=== PATIENT | male | born 1995 | race Caucasian/White ===

== ENCOUNTER 2024-05-17 11:38 | Emergency (ER) | payer MEDICAID ==
[~2024-05-17] VITALS: Ht 170.2 cm; Wt 131.0 kg
[2024-05-17 11:52] VITALS: BP 132/80; PULSE 106; RESP 16; TEMP 98.4; O2SAT 96
[2024-05-17 15:50] LABS: BASOPHILS % 0.4 % (0.0-2.0); EOSINOPHILS % 0.6 % (0.0-5.0); HEMOGLOBIN. 13.4 g/dL (14.0-18.0); LYMPHOCYTES % 13.5 % (20.0-50.0); MEAN CORPUSCULAR HGB CONC 34.2 g/dL (31.0-37.0); MEAN CORPUSCULAR VOLUME 96.4 fL (80.0-94.0); MEAN PLATELET VOLUME 8.1 fl (7.4-10.4); NEUTROPHILS % 79.5 % (40.0-76.0); PLATELET 188 x1000/uL (130-400); RED BLOOD CELL COUNT 4.05 mill/uL (4.7-6.1); RED CELL DISTRIBUTION WIDTH 14.9 % (11.6-14.6); WHITE BLOOD COUNT 8.7 x1000/uL (4.5-11.0)
[2024-05-17 15:56] LABS: CHLORIDE 103 mEq/L (98-107); POTASSIUM 3.6 mEq/L (3.5-5.1); SODIUM 136 mEq/L (136-145)
[2024-05-17 15:57] LABS: CARBON DIOXIDE 27 mEq/L (21-32)
[2024-05-17 15:58] LABS: CALCIUM 9.3 mg/dL (8.7-10.4)
[2024-05-17 16:02] LABS: CREATININE 0.8 mg/dL (0.6-1.3); GLUCOSE 105 mg/dL (70-105)
[2024-05-17 16:03] LABS: UREA NITROGEN BLOOD 13 mg/dL (9-23)
[2024-05-17] MEDS ORDERED: IBUP-2030 MT (17:36)
[2024-05-17] MEDS ORDERED: SULF1TAB48 MT (17:36)
== END 2024-05-17 17:30 ==
LOC: ER 11:38
DX: L03.115 Cellulitis of right lower limb (principal)
CPT/HCPCS: 36415; 80048; 85025; 93971; 99284

== ENCOUNTER 2024-09-27 14:41 | Emergency (ER) | payer MEDICAID ==
[~2024-09-27] VITALS: Ht 171.4 cm; Wt 172.4 kg
[~2024-09-27 14:41] MED LIST: IBUP-2030 MT; SULF1TAB48 MT
[2024-09-27 14:47] VITALS: O2SAT 93
[2024-09-27] MEDS: CEFTRIAXONE SODIUM 1G VIAL IM ONE (16:26)
[2024-09-27 16:43] LABS: CARBON DIOXIDE 29 mEq/L (21-32); CHLORIDE 103 mEq/L (98-107); POTASSIUM 3.3 mEq/L (3.5-5.1); SODIUM 141 mEq/L (136-145)
[2024-09-27 16:44] LABS: CALCIUM 9.3 mg/dL (8.7-10.4)
[2024-09-27 16:46] LABS: BASOPHILS % 0.5 % (0.0-2.0); EOSINOPHILS % 3.9 % (0.0-5.0); HEMATOCRIT. 40.3 % (42.0-52.0); HEMOGLOBIN. 13.3 g/dL (14.0-18.0); LYMPHOCYTES % 26.2 % (20.0-50.0); MEAN CORPUSCULAR HEMOGLOBIN 31.5 pg (28.0-32.0); MEAN CORPUSCULAR HGB CONC 32.9 g/dL (31.0-37.0); MEAN CORPUSCULAR VOLUME 95.8 fL (80.0-94.0); MEAN PLATELET VOLUME 9.1 fl (7.4-10.4); MONOCYTES % 7.4 % (2.0-8.0); PLATELET 225 x1000/uL (130-400); RED BLOOD CELL COUNT 4.21 mill/uL (4.7-6.1); RED CELL DISTRIBUTION WIDTH 14.9 % (11.6-14.6); WHITE BLOOD COUNT 5.9 x1000/uL (4.5-11.0)
[2024-09-27 16:48] LABS: CREATININE 0.7 mg/dL (0.6-1.3)
[2024-09-27 16:49] LABS: GLUCOSE 85 mg/dL (70-105); TROPONIN I HIGH SENSITIVITY 4 ng/L (3.0-53); UREA NITROGEN BLOOD 10 mg/dL (9-23)
[2024-09-27 16:50] LABS: ALANINE AMINOTRANSFERASE 48 IU/L (10-49); ASPARTATE AMINOTRANSFERASE 54 IU/L (<34)
[2024-09-27 16:51] LABS: BILIRUBIN TOTAL 0.5 mg/dL (0.1-1.0)
[2024-09-27] MEDS ORDERED: SULF1TAB48 MT (17:40)
[2024-09-27] MEDS ORDERED: IBUP-2030 MT (17:40)
[2024-09-27 17:42] VITALS: BP 122/55; PULSE 87; RESP 17; TEMP 36.8; O2SAT 95
== END 2024-09-27 18:07 | disposition home or self-care (01) ==
LOC: ER 14:41
DX: L03.115 Cellulitis of right lower limb (principal); F15.10 Other stimulant abuse, uncomplicated
CPT/HCPCS: 80053; 83880; 83605; 85025; 87040; 84484; 36415; 84145; 71045; 93005; 96372; 99285; J0696; Z7610 ×2